=== PATIENT | female | born 1965 | race Caucasian/White ===

== ENCOUNTER → 2019-01-02 | Outpatient (CLI) | payer MEDICARE, MEDICAID ==
[~2019-01-02] MED LIST: ACET1TAB33; ASPI-954; CALTRATE; DOXY-13 PO; DULO60CA6 PO; SULF1TAB38 PO; SUMA25TA3 PO; TRZ50T PO
--- NOTE | 2019-01-03 19:22 | Diagnostic Imaging Report ---
Digital mammogram bilateral screening The current study was also evaluated with a Computer Aided Detection (CAD) system. 3-D tomosynthesis was also performed and reviewed. This is the patient's baseline study. At this time, there are no current complaints. There are scattered fibroglandular densities in both breasts which could obscure a lesion. In the 9 o'clock position of the right breast at anterior depth there is a small group of microcalcifications. These calcifications do not have a particularly threatening appearance. Even so, I would recommend that a compression/magnification view of this area be obtained to better characterize these calcifications. A true lateral view should also be performed. There is no primary or secondary sign of malignancy noted otherwise. IMPRESSION: Additional mammographic views of the right breast would be recommended for further study. ACR BI-RADS Category 0: Incomplete. (Needs additional imaging evaluation). Result letter will be mailed to the patient. Note: At least 10% of breast cancer is not imaged by mammography. Dictated by: Dictated on workstation # [id number]
== END ==
LOC: RAD 13:56
PROVIDERS: ATTEND Pediatrics
DX: Z12.31 Encounter for screening mammogram for malignant neoplasm of breast (principal)
CPT/HCPCS: 77067

== ENCOUNTER → 2019-01-17 | Outpatient (CLI) | payer MEDICARE, MEDICAID ==
--- NOTE | 2019-01-17 17:37 | Diagnostic Imaging Report ---
INDICATION: Right breast calcifications. Patient presents for additional views. Correlation is made with screening mammogram from 01/02/2019. Unilateral right 2-D and 3-D diagnostic mammography was performed including magnification CC and ML views as well as a conventional 90-degree lateral view. The current study was also evaluated with a Computer Aided Detection (CAD) system. 3-D tomosynthesis was also performed and reviewed. FINDINGS: There is a cluster of microcalcifications in the upper and outer aspect of the right breast, anterior depth. The majority of these calcifications appear to be round. No definite pleomorphism is seen. No associated soft tissue mass is identified. IMPRESSION: Likely benign cluster of microcalcifications in the upper-outer right breast. Even so, due to lack of prior mammograms, follow-up right mammogram in six months is recommended to show continued stability. ACR BI-RADS Category 3: Probably benign findings. Result letter will be mailed to the patient. Note: At least 10% of breast cancer is not imaged by mammography. Dictated by: Dictated on workstation # [id number]
== END ==
LOC: RAD 12:56
PROVIDERS: ATTEND Pediatrics
DX: N63.10 Unspecified lump in the right breast, unspecified quadrant (principal); R92.0 Mammographic microcalcification found on diagnostic imaging of breast

== ENCOUNTER 2019-01-31 11:00 | Outpatient (CLI) | payer MEDICARE, MEDICAID ==
[~2019-01-31] VITALS: Ht 152 cm; Wt 58.1 kg
[~2019-01-31 11:00] MED LIST changes: +ATOR20TA66 PO; +FAMO40TA6 PO; +MELO15TA39 PO; +OXYB5TAB9 PO
== END 2019-01-31 11:55 | disposition home or self-care (01) ==
LOC: PREOP 11:00
PROVIDERS: ATTEND Surgery
DX: Z01.818 Encounter for other preprocedural examination (principal)

== ENCOUNTER 2019-02-04 08:46 | Day surgery (SDC) | payer MEDICARE, MEDICAID ==
[2019-02-04] VITALS (8 sets, daily range): BP systolic 106–164; BP diastolic 55–76
[~2019-02-04] VITALS: Ht 152 cm; Wt 58.1 kg
[2019-02-04] MEDS ORDERED: LACTATED RINGERS 1,000 ML IV STA (08:51)
[2019-02-04] MEDS ORDERED: LACTATED RINGERS 1,000 ML IV ONE (08:53)
[2019-02-04] MEDS ORDERED: HURRICAINE EXT TUBE (BENZOCAINE) XX PRN (09:00)
--- NOTE | 2019-02-04 09:53 | Progress Note-Pre Operative ---
Pre-Operative Progress Note H&P Reviewed The H&P was reviewed, patient examined and no changes noted. Time Seen by Provider: 09:50 Date H&P Reviewed: Feb 04, 2019 Time H&P Reviewed: 09:53 Pre-Operative Diagnosis: GERD/Gastritis, screening colonoscopy ERICKA HYATT DO Feb 04, 2019 09:53 POS
[2019-02-04] MEDS ORDERED: HURRICAINE EXT TUBE (BENZOCAINE) ONE (11:06)
[2019-02-04] MEDS ORDERED: PROPOFOL INJECTION 50 ML IV ONE (11:15)
[2019-02-04] MEDS ORDERED: MIDAZOLAM 2 MG/2 ML (VERSED) VIAL ONE (11:15)
--- NOTE | 2019-02-04 11:58 | Progress Note-Post Operative ---
Post-Operative Progess Note Surgeon (s)/Greenhouse Or Nursery Transplanter (s) Surgeon ERICKA HYATT DO Greenhouse Or Nursery Transplanter: VINCE DuenasII Pre-Operative Diagnosis GERD/Gastritis, screening colonoscopy Post-Operative Diagnosis Gastritis Hiatal hernia Colon polyps diverticula internal hemorrhoids poor prep Procedure & Operative Findings Date of Procedure 02/04/19 Procedure Performed/Findings EGD with bx Colon with snare Anesthesia Type IV sedation by WASHER AND CAPPER MACHINE OPERATOR Estimated Blood Loss Estimated blood loss (mL): scant Specimens/Packing Specimens Removed antral bx, body of stomach bx, GE jxn bx Colon polyps - Descending x 1, Rectal x 3 ERICKA HYATT DO Feb 04, 2019 11:58 POS
--- NOTE | 2019-02-04 11:59 | Endoscopy Discharge Instruct ---
Endo Procedure/Findings Findings 1.: Hiatal Hernia, Gastritis 2.: Polyp 3.: Diverticulosis 4.: Internal Hemorrhoids Discharge Instructions - Activity: You might feel a little sleepy until tomorrow. This is due to the medicine you received to relax you. Until tomorrow, you should: NOT drive a car, operate machinery or power tools. NOT drink any alcoholic beverages. NOT make any important decisions or sign importortant papers. Do not return to work until tomorrow, unless otherwise instructed. Resume previous activities tomorrow. Diet: Start by taking liquids. If you tolerate liquids, advance to solid food. make an appointment for one week 1.: Colonoscopy in 1 year Notify Physician - If you experience excessive bleeding, unusual abdominal pain, fever, or chest pain, contact your doctor immediately. ERICKA HYATT DO Feb 04, 2019 11:59 POS
--- NOTE | 2019-02-04 13:13 | Anesthesia-General Post-Op ---
MAC Patient Condition Mental Status/LOC: Same as Preop Cardiovascular: Satisfactory Nausea/Vomiting: Absent Respiratory: Satisfactory Pain: Controlled Complications: Absent Post Op Complications Complications None Follow Up Care/Instructions Patient Instructions None needed. Anesthesiology Discharge Order Discharge Order Patient is doing well, no complaints, stable vital signs, no apparent adverse anesthesia problems. No complications reported per nursing. RONALD VALENCIA CRNA Feb 04, 2019 13:13 POS
--- NOTE | 2019-02-04 19:01 | OPERATIVE REPORT ---
DATE OF SERVICE: 02/04/2019 PREOPERATIVE DIAGNOSES: Gastritis and screening colonoscopy. POSTOPERATIVE DIAGNOSES: 1. Gastritis. 2. Hiatal hernia. 3. Colon polyps. 4. Diverticula. 5. Internal hemorrhoids. 6. Poor prep. PROCEDURES: 1. EGD with biopsy. 2. Colonoscopy with snare polypectomy. SURGEON: Abel Vazquez DO GALLERY HOST: Radha Guzman, MS3 SPECIMENs: 1. One biopsy from the antrum, one biopsy from the body of stomach and one biopsy from the GE junction. 2. One descending colon polyp. 3. Three rectal polyps. BLOOD LOSS: Scant. FLUIDS: Per anesthesia. POSTOPERATIVE CONDITION: Stable. INDICATION FOR PROCEDURE: The patient is a 53-year-old female, who has chronic gastritis, needs a workup and has never had a colonoscopy, needed one for screening. FINDINGS: The patient had some very mild gastritis, small hiatal hernia. In the colon, unfortunately, she had a poor prep. We did find about four polyps, one in the descending colon, three in the rectum. She also had some small diverticula and some internal hemorrhoids. PROCEDURE NOTE: After informed consent was obtained, the patient was brought to the endoscopy suite and placed in the left lateral decubitus position. She was administered IV sedation by the ADMINISTRATIVE ASSISTANT RECEPTIONIST, who then monitored her vitals the entire time, heart rate, blood pressure and pulse ox and the scope first started with the EGD, placed the scope down the mouth through the esophagus into the stomach, noted some very mild gastritis, pushed into the duodenum. Duodenum looked fine. Pulled back into the antrum, did a biopsy of the antrum and then retroflexed the scope. Did a biopsy of the body of the stomach and then looked up at the GE junction, saw a small hiatal hernia, took a picture of this. Pulled the scope into the GE junction, did a biopsy here and then suctioned the air out of the stomach and pulled the scope up the esophagus out the mouth. Switched camera, switched gloves, went down below, started the colonoscopy. Upon entry, noted a lot of retained fecal material of liquid, but some large pieces making it unable for me to suction out all the fluid, able to push all the way to the cecum, got to the cecum, pushed about 150 cm in, took a picture of the appendiceal orifice, noted the ileocecal valve and then slowly withdrew the scope insufflating to look circumferentially at the workman looking at the cecum, up the ascending colon to the hepatic flexure, then down the transverse colon, splenic flexure, into the descending colon, saw small polyp, did a snare polypectomy here. Continued down, took pictures of the diverticula and into the rectum. In the rectum, saw a large polyp, removed this with snare polypectomy and then saw two more small polyps found in the rectum, removed these with snare polypectomy as well, suctioned these up and sent to pathology. Retroflexed the scope in rectal vault, saw some minimal internal hemorrhoids. The patient will need a repeat colonoscopy in one year because of a poor prep and the number of polyps found. Removed the scope. The patient tolerated the procedure. She was recovered in endoscopy suite. Job ID: [id number] DocumentID: [id number] Dictated Date: 02/04/2019 11:55:05 Slat Basket Maker Date: 02/04/2019 19:00:42 Dictated By: ABEL VAZQUEZ DO
== END 2019-02-04 12:40 | disposition home or self-care (01) ==
LOC: ENDO 08:46
PROVIDERS: ATTEND Surgery
DX: Z12.11 Encounter for screening for malignant neoplasm of colon (principal); D12.8 Benign neoplasm of rectum; K21.0 Gastro-esophageal reflux disease with esophagitis; K44.9 Diaphragmatic hernia without obstruction or gangrene; K57.30 Diverticulosis of large intestine without perforation or abscess without bleeding; K64.8 Other hemorrhoids; K29.50 Unspecified chronic gastritis without bleeding; F43.10 Post-traumatic stress disorder, unspecified; F17.210 Nicotine dependence, cigarettes, uncomplicated; Z88.5 Allergy status to narcotic agent; Z82.49 Family history of ischemic heart disease and other diseases of the circulatory system; Z90.49 Acquired absence of other specified parts of digestive tract; Z90.89 Acquired absence of other organs

== ENCOUNTER 2019-02-06 19:48 | Emergency (ER) | payer OTHER, MEDICARE, MEDICAID ==
[~2019-02-06] VITALS: Ht 152.4 cm; Wt 103.6 kg
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
[2019-02-06 21:00] LABS: BASOPHILS % (AUTO) 0 % (0-10); EOSINOPHILS # (AUTO) 0.1 10^3/uL (0.0-0.3); EOSINOPHILS % (AUTO) 1 % (0-10); HEMATOCRIT 40 % (35-52); HEMOGLOBIN 13.1 G/DL (11.5-16.0); LYMPHOCYTES # (AUTO) 1.7 X 10^3 (1.0-4.0); LYMPHOCYTES % (AUTO) 19 % (12-44); MEAN CORPUSCULAR HEMOGLOBIN 29 PG (25-34); MEAN CORPUSCULAR HGB CONC 33 G/DL (32-36); MEAN CORPUSCULAR VOLUME 86 FL (80-99); MEAN PLATELET VOLUME 9.5 FL (7.4-10.4); MONOCYTES # (AUTO) 0.4 X 10^3 (0.0-1.0); MONOCYTES % (AUTO) 5 % (0-12); NEUTROPHILS # (AUTO) 6.7 X 10^3 (1.8-7.8); NEUTROPHILS % (AUTO) 75 % (42-75); PLATELET COUNT 203 10^3/uL (130-400); WHITE BLOOD COUNT 8.9 10^3/uL (4.3-11.0)
[2019-02-06] MEDS ORDERED: HOLD METFORMIN - RECEIVED CONTRAST 20 ML VIAL IV SCH (21:00)
[2019-02-06] MEDS ORDERED: IOHEXOL 350 MG/ML 100 ML (OMNIPAQUE 350) VIAL IV ONE (21:00)
[2019-02-06] MEDS ORDERED: NS 100 ML (IVPB) BAG IV ONE (21:00)
[2019-02-06 21:18] LABS: CALCIUM 9.9 MG/DL (8.5-10.1); CARBON DIOXIDE 28 MMOL/L (21-32); CHLORIDE 102 MMOL/L (98-107); GLUCOSE 104 MG/DL (70-105); POTASSIUM 4.1 MMOL/L (3.6-5.0); SODIUM 140 MMOL/L (135-145)
[2019-02-06 21:35] LABS: BUN/CREATININE RATIO 20; CREATININE SERUM 0.76 MG/DL (0.60-1.30); GFR ESTIMATED > 60
[2019-02-06] MEDS ORDERED: HYDROcodone/APAP 5 MG/325 MG (LORTAB) TAB PO ONE (22:00)
[2019-02-06] MEDS ORDERED: NAPR-1071 PO (22:37)
[2019-02-06] MEDS ORDERED: METH-313 PO (22:37)
[2019-02-06 22:57] VITALS: BP 156/88
[2019-02-06] MEDS ORDERED: RX-HYDROCODONE/APAP 5/325 MG #4 TAB PK PO PRN (23:00)
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
== END 2019-02-06 22:57 | disposition home or self-care (01) ==
LOC: EDUNIT# 19:48 → ER 19:50
DX: S20.212A Contusion of left front wall of thorax, initial encounter (principal); E78.00 Pure hypercholesterolemia, unspecified; K21.9 Gastro-esophageal reflux disease without esophagitis; F17.210 Nicotine dependence, cigarettes, uncomplicated; Z88.5 Allergy status to narcotic agent; V59.50XA Passenger in pick-up truck or van injured in collision with unspecified motor vehicles in traffic accident, initial encounter
CPT/HCPCS: 36415; 71260; 74177; 80048; 85025

== ENCOUNTER → 2019-08-16 | Outpatient (CLI) | payer MEDICARE, MEDICAID ==
[~2019-08-16] MED LIST changes: +METH-313 PO; +NAPR-1071 PO; +OXYB5TAB13 PO; -OXYB5TAB9 PO
--- NOTE | 2019-08-16 18:40 | Diagnostic Imaging Report ---
INDICATION: Right breast calcifications. Patient presents for six-month follow-up. COMPARISON: Correlation is made with prior exam from 01/02/2019. EXAMINATION: Unilateral right 2D and 3D diagnostic mammography was performed with CAD. This includes magnification CC and ML views as well as routine CC and MLO as well as 90 degree lateral views. The current study was also evaluated with a Computer Aided Detection (CAD) system. FINDINGS: Clustered microcalcifications in the outer anterior portion of the right breast appear stable. These again are likely benign. Scattered benign calcification throughout the right breast are noted. No mass is seen. Axillae are unremarkable. IMPRESSION: Stable right breast calcifications. This now shows six months of stability. Additional follow-up in six months is recommended. ACR BI-RADS Category 3: Probably benign findings. Result letter will be mailed to the patient. Note: At least 10% of breast cancer is not imaged by mammography. Dictated by: Dictated on workstation # [id number]
== END ==
LOC: RAD 13:03
PROVIDERS: ATTEND Pediatrics
DX: R92.1 Mammographic calcification found on diagnostic imaging of breast (principal)

== ENCOUNTER → 2020-02-10 | Outpatient (CLI) | payer MEDICARE, MEDICAID ==
--- NOTE | 2020-02-10 13:50 | Diagnostic Imaging Report ---
INDICATION: Right breast calcifications, follow\up. Correlation is made with prior right mammogram from 08/16/2019 as well as bilateral mammogram mammogram from 01/02/2019. 2-D and 3-D bilateral diagnostic mammography was performed with CAD. Scattered fibroglandular densities are identified bilaterally. There are benign cancellations of both breasts. Cluster in the upper and outer anterior right breast appears stable and likely benign. No spiculated mass is identified. Axillae are unremarkable. IMPRESSION: BI-RADS Category 2 Bilateral benign calcifications. Calcifications in the anterior upper outer right breast are stable and having a benign appearance as well. Patient may return to routine annual screening mammography. ACR BI-RADS Category 2: Benign findings. Result letter will be mailed to the patient. Note: At least 10% of breast cancer is not imaged by mammography. Dictated by: Dictated on workstation # [id number]
== END ==
LOC: RAD 13:15
PROVIDERS: ATTEND Pediatrics
DX: Z12.31 Encounter for screening mammogram for malignant neoplasm of breast (principal); R92.1 Mammographic calcification found on diagnostic imaging of breast
CPT/HCPCS: 77062; 77066

== ENCOUNTER → 2021-03-16 | Outpatient (CLI) | payer MEDICARE, MEDICAID ==
--- NOTE | 2021-03-16 15:34 | Diagnostic Imaging Report ---
INDICATION: Asymptomatic postmenopausal female. COMPARISON: None. FINDINGS: AP Spine L1-L4: [BMD (g/cm2): 0.848] [T-Score: -2.9] [Z-Score: -3.0] [BMD Previous: NA] [BMD % Change: NA] LT Hip Neck: [BMD (g/cm2): 0.813] [T-Score: -1.6] [Z-Score: -1.2] LT Hip Total: [BMD (g/cm2):0.923] [T-Score:-0.7] [Z-Score: -0.7] [BMD Previous: NA] [BMD % Change: NA] RT Hip Neck: [BMD (g/cm2):0.829] [T-Score:-1.5] [Z-Score:-1.1] RT Hip Total: [BMD (g/cm2):0.915] [T-score:-0.7] [Z-Score:-0.7] [BMD Previous:NA] [BMD % Change:NA] *Indicates significant change from prior examination based on 95% confidence level. World Health Organization criteria for BMD interpretation classify patients as Normal (T-score at or above -1.0), Osteopenic (T-score between -1.0 and -2.5) or Osteoporotic (T-score at or below -2.5). LIMITATIONS AND MODIFICATION: None. FRACTURE RISK (FRAX SCORE): The ten year probability of (%): Major Osteoporotic Fracture: [NA] Hip Fracture: [NA] IMPRESSION: 1. Osteoporosis. 2. Baseline examination. 3. See below National Osteoporosis Foundation guidelines on when to potentially initiate pharmacologic therapy. Based on the National Osteoporosis Foundation Guidelines, pharmacologic treatment should be initiated in any of the following, unless clinical conditions suggest otherwise: * Any patient with prior fragility fracture of the hip or vertebrae. A spine fracture indicates 5X risk for subsequent spine fracture and 2X risk for subsequent hip fracture. * Osteoporosis (T-score <-2.5). * Postmenopausal women and men age 50 and older with low bone mass/osteopenia (T-score between -1.0 and -2.5) by DXA and 10-year major osteoporotic fracture greater than 20% or a 10-year probability of hip fracture greater than 3%. These fracture risks are supplied above in the FRAX score, if applicable. * Clinician judgement and/or patient preferences may indicate treatment for people with 10-year fracture probabilities above or below these levels. Dictated by: Dictated on workstation # [id number]
== END ==
LOC: RAD 14:30
PROVIDERS: ATTEND Nurse Practitioner Family
DX: Z13.820 Encounter for screening for osteoporosis (principal); M81.0 Age-related osteoporosis without current pathological fracture; Z78.0 Asymptomatic menopausal state
CPT/HCPCS: 77080

== ENCOUNTER 2022-01-31 07:43 | Day surgery (SDC) | payer MEDICARE, MEDICAID ==
[2022-01-31] VITALS (7 sets, daily range): BP systolic 126–182; BP diastolic 60–69
[~2022-01-31] VITALS: Ht 152.4 cm; Wt 96.7 kg
[~2022-01-31 07:43] MED LIST changes: +ALEN70TA80 PO; +CHOL200025 PO; +GABA300C PO
[2022-01-31] MEDS ORDERED: LACTATED RINGERS 1,000 ML IV STA (08:19)
--- NOTE | 2022-01-31 08:26 | Progress Note-Pre Operative ---
Pre-Operative Progress Note Date of Available H&P: Jan 20, 2022 Date H&P Reviewed: Jan 31, 2022 Time H&P Reviewed: 08:15 History & Physical: H&P Reviewed, Patient Examed, No changes noted Pre-Operative Diagnosis: Hx of polyps ERICKA HYATT DO Jan 31, 2022 08:26
[2022-01-31] MEDS ORDERED: MIDAZOLAM 2 MG/2 ML (VERSED) VIAL ONE (10:20)
[2022-01-31] MEDS ORDERED: PROPOFOL INJECTION 50 ML IV ONE (10:20)
--- NOTE | 2022-01-31 10:51 | Progress Note-Post Operative ---
Post-Operative Progess Note Surgeon (s)/Printing Supplies Sales Representative (s) Surgeon ERICKA HYATT DO Printing Supplies Sales Representative: none Pre-Operative Diagnosis Hx of polyps Post-Operative Diagnosis polyps diverticula int hemorrhoids Procedure & Operative Findings Date of Procedure 01/31/22 Procedure Performed/Findings Colonoscopy with cold biopsy PROCEDURE NOTE: After informed consent was obtained, the patient was brought to the endoscopy suite, placed in bed in left lateral decubitus position. She was administered IV sedation by the SLOT MANAGER who then monitored her vitals the entire time, heart rate, blood pressure and pulse ox and the scope was inserted, pushed all the way to about 130 cm and pushed into the cecum. Took a picture of appendiceal orifice and then slowly withdrew the scope insufflating to look circumferentially at the workman starting in the cecum, up the ascending colon to the hepatic flexure, then down the transverse colon. Found a small flat polyp here and did a cold biopsy. Then to the splenic flexure, into the descending colon and found another polyp here and did another cold biopsy. Finally down in the sigmoid and then into the rectal vault and retroflexed the scope. Took picture of the internal hemorrhoids. There were also a few diverticula seen. The patient tolerated the procedure. She was recovered in endoscopy suite. Recommended for repeat colonoscopy in 5 years. Anesthesia Type IV sedation by SLOT MANAGER Estimated Blood Loss Estimated blood loss (mL): scant Specimens/Packing Specimens Removed transverse colon polyp desc colon polyp ERICKA HYATT DO Jan 31, 2022 10:51
--- NOTE | 2022-01-31 10:53 | Anesthesia-General Post-Op ---
MAC Patient Condition Mental Status/LOC: Same as Preop Cardiovascular: Satisfactory Nausea/Vomiting: Absent Respiratory: Satisfactory Pain: Controlled Complications: Absent Post Op Complications Complications None Follow Up Care/Instructions Patient Instructions None needed. Anesthesiology Discharge Order Discharge Order Patient is doing well, no complaints, stable vital signs, no apparent adverse anesthesia problems. No complications reported per nursing. RONALD VALENCIA CRNA Jan 31, 2022 10:53
--- NOTE | 2022-01-31 10:53 | Endoscopy Discharge Instruct ---
Endo Procedure/Findings Findings 1.: Polyp 2.: Diverticulosis 3.: Internal Hemorrhoids Discharge Instructions - Activity: You might feel a little sleepy until tomorrow. This is due to the medicine you received to relax you. Until tomorrow, you should: NOT drive a car, operate machinery or power tools. NOT drink any alcoholic beverages. NOT make any important decisions or sign importortant papers. Do not return to work until tomorrow, unless otherwise instructed. Resume previous activities tomorrow. Diet: Start by taking liquids. If you tolerate liquids, advance to solid food. 1.: Colonscopy in 5 years Notify Physician - If you experience excessive bleeding, unusual abdominal pain, fever, or chest pain, contact your doctor immediately. ERICKA HYATT DO Jan 31, 2022 10:53
== END 2022-01-31 11:45 | disposition home or self-care (01) ==
LOC: ENDO 07:43
PROVIDERS: ATTEND Surgery
DX: Z12.11 Encounter for screening for malignant neoplasm of colon (principal); D12.4 Benign neoplasm of descending colon; K63.5 Polyp of colon; K57.30 Diverticulosis of large intestine without perforation or abscess without bleeding; K64.8 Other hemorrhoids; E66.01 Morbid (severe) obesity due to excess calories; Z68.41 Body mass index [BMI] 40.0-44.9, adult; F17.210 Nicotine dependence, cigarettes, uncomplicated
CPT/HCPCS: 88305